=== PATIENT | female | born 1990 | race African-American/Black ===

== ENCOUNTER 2021-07-28 05:16 | Emergency (ER) | payer OTHER ==
[~2021-07-28] VITALS: Ht 154.9 cm; Wt 85.0 kg
[2021-07-28 05:27] VITALS: BP 127/69
[2021-07-28] MEDS ORDERED: CEFTRIAXONE SODIUM 500 MG/VIAL IM ONE (05:45)
[2021-07-28] MEDS ORDERED: LIDOCAINE HCL 1% 20ML VIAL (Pyxis) INJ INFIL ONE (05:45)
[2021-07-28] MEDS ORDERED: DOXY100C5 MT (05:51)
[2021-07-30 04:09] LABS: NEISSERIA GONORRHOEAE NAA Negative (Negative)
== END 2021-07-28 06:34 | disposition home or self-care (01) ==
LOC: ER 05:16
DX: Z20.2 Contact with and (suspected) exposure to infections with a predominantly sexual mode of transmission (principal)
CPT/HCPCS: 81025; 87491; 87591; 96372; 99283; J0696; J3490

== ENCOUNTER 2022-01-10 16:56 | Emergency (ER) | payer MEDICAID, OTHER ==
[~2022-01-10] VITALS: Ht 157.5 cm; Wt 75.0 kg
[~2022-01-10 16:56] MED LIST: DOXY100C5 MT
[2022-01-10 17:17] VITALS: BP 123/79
== END 2022-01-10 18:58 | disposition left against medical advice (07) ==
LOC: ER 17:02
DX: Z53.21 Procedure and treatment not carried out due to patient leaving prior to being seen by health care provider (principal)
CPT/HCPCS: 70480

== ENCOUNTER 2022-01-20 08:01 | Emergency (ER) | payer MEDICAID ==
[~2022-01-20] VITALS: Ht 157.5 cm; Wt 73.0 kg
[2022-01-20 08:29] VITALS: BP 145/82
== END 2022-01-20 10:00 | disposition left against medical advice (07) ==
LOC: ER 08:01
DX: Z53.21 Procedure and treatment not carried out due to patient leaving prior to being seen by health care provider (principal)

== ENCOUNTER 2023-08-26 01:30 | Emergency (ER) | payer MEDICAID ==
[~2023-08-26] VITALS: Ht 157.5 cm; Wt 81.6 kg
[2023-08-26 01:42] VITALS: BP 126/70; PULSE 51; RESP 16; TEMP 98.5; O2SAT 100
[2023-08-26] MEDS ORDERED: DOXY-456 MT (02:12)
[2023-08-26] MEDS ORDERED: METR-167 MT (02:12)
[2023-08-26] MEDS: CEFTRIAXONE SODIUM 500MG VIAL IM ONE (02:43)
[2023-08-26] MEDS: DOXYCYCLINE HYCLATE 100MG CAPSULE PO ONE (02:43)
[2023-08-26 03:12] LABS: CLARITY URINE CLEAR (CLEAR); COLOR URINE YELLOW (YELLOW); GLUCOSE URINE NEGATIVE (NEGATIVE); KETONES URINE TRACE (NEGATIVE); LEUKOCYTE ESTERASE URINE 1+ (NEGATIVE); NITRITE URINE NEGATIVE (NEGATIVE); OCCULT BLOOD URINE NEGATIVE (NEGATIVE); PROTEIN URINE 1+ (NEGATIVE); SPECIFIC GRAVITY URINE 1.033 (1.005-1.030)
[2023-08-26 03:27] LABS: WBC URINE 0-2 /hpf (0-2)
[2023-08-26 03:28] LABS: BACTERIA URINE TRACE; RBC URINE NONE SEEN /hpf (0-2); SQUAMOUS EPITHELIAL CELL URINE FEW /lpf (RARE/1+)
== END 2023-08-26 02:44 | disposition home or self-care (01) ==
LOC: ER 01:30
DX: Z20.2 Contact with and (suspected) exposure to infections with a predominantly sexual mode of transmission (principal)
CPT/HCPCS: 81003; 81025; 96372; 99283; J0696; Z7610 ×2

== ENCOUNTER 2023-10-23 02:20 | Emergency (ER) | payer MEDICAID ==
[~2023-10-23] VITALS: Ht 157.5 cm; Wt 87.3 kg
[~2023-10-23 02:20] MED LIST changes: +DOXY-456 MT; +METR-167 MT
[2023-10-23 02:37] VITALS: BP 123/74; PULSE 84; RESP 16; TEMP 98.3; O2SAT 99
== END 2023-10-23 07:33 | disposition left against medical advice (07) ==
LOC: ER 02:20
DX: R04.0 Epistaxis (principal); Z53.21 Procedure and treatment not carried out due to patient leaving prior to being seen by health care provider
CPT/HCPCS: 99281

== ENCOUNTER 2024-03-24 02:43 | Emergency (ER) | payer MEDICAID ==
[~2024-03-24] VITALS: Ht 157.5 cm; Wt 87.0 kg
[~2024-03-24 02:43] MED LIST changes: -DOXY-456 MT; +DOXY100C74 MT
[2024-03-24 02:48] VITALS: O2SAT 100
[2024-03-24 03:00] VITALS: BP 109/59; PULSE 66; RESP 18; TEMP 98.6; O2SAT 100
[2024-03-24 03:36] LABS: CLARITY URINE CLEAR (CLEAR); COLOR URINE YELLOW (YELLOW); GLUCOSE URINE NEGATIVE (NEGATIVE); KETONES URINE NEGATIVE (NEGATIVE); LEUKOCYTE ESTERASE URINE 1+ (NEGATIVE); NITRITE URINE NEGATIVE (NEGATIVE); OCCULT BLOOD URINE 2+ (NEGATIVE); PH URINE 6.5 (4.5-8.0); PROTEIN URINE NEGATIVE (NEGATIVE); SPECIFIC GRAVITY URINE 1.026 (1.005-1.030); UROBILINOGEN URINE 0.2 E.U./dL (0.2-1.0)
[2024-03-24 03:39] LABS: UCG SCREEN NEGATIVE
[2024-03-24] MEDS ORDERED: DOXY100C5 MT (04:02)
[2024-03-24 04:25] LABS: BACTERIA URINE 1+; SQUAMOUS EPITHELIAL CELL URINE FEW /lpf (RARE/1+)
[2024-03-25 17:06] LABS: CHLAMYDIA TRACHOMATIS NAA Negative (Negative); NEISSERIA GONORRHOEAE NAA Negative (Negative)
== END 2024-03-24 04:32 | disposition home or self-care (01) ==
LOC: ER 03:02
DX: Z11.3 Encounter for screening for infections with a predominantly sexual mode of transmission (principal)
CPT/HCPCS: 81003; 81025; 87491; 87591; 99283

== ENCOUNTER 2025-03-27 21:53 | Emergency (ER) | payer OTHER, MEDICAID ==
[~2025-03-27] VITALS: Ht 157.5 cm; Wt 92.1 kg
[~2025-03-27 21:53] MED LIST changes: +DOXY-461 MT; -DOXY100C74 MT
[2025-03-27 21:58] VITALS: O2SAT 99
[2025-03-28] MEDS ORDERED: IBUP-2030 MT (01:16)
[2025-03-28 01:45] VITALS: BP 121/92; PULSE 84; RESP 18; TEMP 36.8; O2SAT 100
== END 2025-03-28 01:45 | disposition home or self-care (01) ==
LOC: ER 21:53
DX: S00.83XA Contusion of other part of head, initial encounter (principal); H53.8 Other visual disturbances; R42 Dizziness and giddiness; V49.9XXA Car occupant (driver) (passenger) injured in unspecified traffic accident, initial encounter; Y93.89 Activity, other specified; Y92.89 Other specified places as the place of occurrence of the external cause; Y99.8 Other external cause status
CPT/HCPCS: 73030; 99284